=== PATIENT | female | born 1985 | race African-American/Black ===

== ENCOUNTER 2016-02-28 18:11 | Emergency (ER) | payer SELFPAY ==
[~2016-02-28] VITALS: Ht 165.1 cm; Wt 73.9 kg
[~2016-02-28 18:11] MED LIST: CIPRO500 MG PO; CYCLOBENZAPRINE10 MG ORAL; DONNATAL TAB1 TAB PO; ERYTHROMYCIN3.5 GM RIGHT EYE; IBUPROFEN600 MG ORAL; MACROBID100 MG ORAL; NAPROSYN500 M1 ORAL; NKM; NORCO 5-325 TA1 EACH ORAL; ONDANSETRON ODT8 MG PO; PHENERGAN25 M1 PO; PRENATAL FORMU1 EAC2 ORAL; PRENATAL MULTI1 EAC2 PO; TRAMADOL HCL50 MG ORAL; VICODIN 5-5001 EACH PO; ZOFRAN ODT4 MG ORAL; ZOFRAN4 MG ORAL
[2016-02-28 18:50] VITALS: BP 122/85
[2016-02-28] MEDS ORDERED: Lidocaine 2% Visc 15ml soln ONE (20:23)
[2016-02-28] MEDS ORDERED: Dexamethasone 4mg/ml vial ONE (20:24)
[2016-02-28] MEDS ORDERED: Lidocaine 2% Visc 15ml soln ORAL ONE (20:30)
[2016-02-28] MEDS ORDERED: Dexamethasone 4mg/ml vial IM ONE (20:30)
--- NOTE | 2016-02-28 20:32 | Emergency Room Report ---
History of Present Illness General Chief Complaint: Sore Throat Source: Patient Present Illness HPI 30 YO female Pt. presents to the ED c/o : sore throat, tonsillar swelling, and 10/10 pain tearing sensation with swallowing in addition to fevers. Patient denies cough patient states she had mild discomfort 2 days prior to wakening with severe swelling and pain this a.m.. Patient states she's been taking Tylenol and Motrin for pain and fever control. She is worried that she may have strep throat. She denies neck pain or stiffness. Patient reports chills. Denies CP, Palpitations, LOC, AMS, dizziness, Changes in Vision, Sensation, paresthesias, or a sudden severe headache. She denies ill contacts or recent travel. Allergies: Coded Allergies: No Known Allergies (Unverified , 03/08/12) Patient History Past Medical History: see triage record Past Surgical History: none Pertinent Family History: none Last Menstrual Period: 02/11/16 Now: No Immunizations: UTD Reviewed Nursing Documentation: PMH: Agreed, PSxH: Agreed Nursing Documentation-PMH Past Medical History: No History, Except For Hx Cardiac Problems: Yes - anemia, spinal injury Review of Systems All Other Systems: negative except mentioned in HPI Physical Exam Vital Signs Date Time Temp Pulse Resp B/P Pulse Ox O2 Delivery O2 Flow Rate FiO2 02/28/16 18:43 99.1 111 16 122/85 99 Room Air Sp02 EP Interpretation: reviewed, abnormal - mildly tachycardic at 111 General Appearance: no apparent distress, alert, GCS 15, non-toxic Head: normocephalic, atraumatic Eyes: bilateral eye PERRL, bilateral eye normal inspection ENT: hearing grossly normal, normal pharynx, no angioedema, normal voice, TMs + canals normal, tonsillar swelling, pharyngeal erythema, tonsillar exudate Neck: full range of motion, supple/symm/no masses Respiratory: chest non-tender, lungs clear, normal breath sounds, speaking full sentences Cardiovascular #1: regular rate, rhythm, no edema Rectal: deferred Musculoskeletal: back normal, gait/station normal, normal range of motion, non- tender, no calf tenderness Neurologic: alert, oriented x3, responsive, motor strength/tone normal, sensory intact, speech normal Psychiatric: judgement/insight normal, memory normal, mood/affect normal, no suicidal/homicidal ideation Skin: normal color, no rash, warm/dry, well hydrated Lymphatic: no adenopathy Medical Decision Making PA Attestation Dr. Alberto is my supervising Physician whom patient management has been discussed with. Diagnostic Impression: Primary Impression: Pharyngitis, acute Qualified Codes: J02.9 - Acute pharyngitis, unspecified ER Course Pt. presents to the ED c/o : sore throat, tonsillar swelling, and 10/10 pain tearing sensation with swallowing in addition to fevers. Ddx considered but are not limited to: pharyngitis, strep, MANAGER TRAVEL, ludwigs angina, URI Vital signs: are WNL, pt. is afebrile H&PE are most consistent with: pharyngitis presumed strep ORDERS: None required at this time as the diagnosis is clinical ED INTERVENTIONS: -8mg Decadron -20mL 2% Viscous lidocaine PO for pain DISCHARGE: At this time pt. is stable for d/c to home. Will provide printed patient care instructions, and any necessary prescriptions. Care plan and follow up instructions have been discussed with the patient prior to discharge. Last Vital Signs Date Time Temp Pulse Resp B/P Pulse Ox O2 Delivery O2 Flow Rate FiO2 02/28/16 18:50 99.1 84 16 122/85 99 Room Air Disposition: HOME, SELF-CARE Condition: Stable Scripts Lidocaine HCl (Lidocaine HCl Viscous) 100 Ml Solution 20 ML PO TID for 5 Days, ML Prov: Gisel Brito 02/28/16 Acetaminophen* (TYLENOL EXTRA STRENGTH*) 500 Mg Tablet 500 MG ORAL Q6H, #30 TAB 0 Refills Prov: Gisel Brito 02/28/16 Amoxicillin* (AMOXIL*) 500 Mg Capsule 500 MG ORAL BID for 10 Days, #20 CAP Prov: Gisel Brito 02/28/16 Referrals: NOT CHOSEN IPA/MD,REFERRING (PCP) Patient Instructions: Pharyngitis, [id number] Additional Instructions: Take medications as directed. Follow up with PCP in 3-5 days Return sooner to ED if new symptoms occur, or current symptoms become worse. Gisel Brito Feb 28, 2016 20:32
[2016-02-28] MEDS ORDERED: AMOXICILLIN500 MG ORAL (20:34)
[2016-02-28] MEDS ORDERED: TYLENOL EXTRA500 MG ORAL (20:35)
[2016-02-28] MEDS ORDERED: LIDOCAINE VISCO20 ML PO (20:35)
[2016-02-28 20:44] VITALS: BP 122/85
== END 2016-02-28 20:44 | disposition home or self-care (01) ==
LOC: EMR 19:04
DX: J02.9 Acute pharyngitis, unspecified (principal)
CPT/HCPCS: 96372; 99283; J1100

== ENCOUNTER 2016-03-01 13:06 | Emergency (ER) | payer SELFPAY ==
[~2016-03-01] VITALS: Ht 165.1 cm; Wt 72.1 kg
[~2016-03-01 13:06] MED LIST changes: +AMOXICILLIN500 MG ORAL; +LIDOCAINE VISCO20 ML PO; +TYLENOL EXTRA500 MG ORAL
[2016-03-01 13:40] VITALS: BP 101/70
--- NOTE | 2016-03-01 14:14 | Emergency Room Report ---
History of Present Illness General Chief Complaint: Sore Throat Source: Patient Present Illness HPI 30 YO female Pt. presents to the ED c/o : sore throat with tonsillar swelling x 5 days, with New onset severe tongue sensitivity described as razor blades x 2 days Pt has been taking oral abx. which was rx'd to her 3 days ago for her throat and previous fevers. Pt. denies fevers at this time. pt. states mouth sensitivity is 10/10 in severity. Denies neck pain or stiffness denies swollen or tender lymph nodes. Denies changes in voice or hoarseness. Denies rash, CP, Palpitations, LOC, AMS, dizziness, Changes in Vision, Sensation, paresthesias, or a sudden severe headache. Allergies: Uncoded Allergies: FLU VACCINE (Allergy, Unknown, 03/01/16) Patient History Past Medical History: see triage record Past Surgical History: none Pertinent Family History: none Last Menstrual Period: unknown Now: No Reviewed Nursing Documentation: PMH: Agreed, PSxH: Agreed Nursing Documentation-PMH Past Medical History: No History, Except For Hx Cardiac Problems: Yes - anemia, spinal injury Review of Systems All Other Systems: negative except mentioned in HPI Physical Exam Vital Signs Date Time Temp Pulse Resp B/P Pulse Ox O2 Delivery O2 Flow Rate FiO2 03/01/16 13:40 98.8 87 14 101/70 97 Room Air Sp02 EP Interpretation: reviewed, normal General Appearance: no apparent distress, alert, GCS 15, non-toxic Head: normocephalic, atraumatic Eyes: bilateral eye PERRL, bilateral eye normal inspection ENT: hearing grossly normal, normal pharynx, no angioedema, normal voice, TMs + canals normal, uvula midline, moist mucus membranes, pharyngeal erythema, other - no oral lesions noted, the tongue has swollen/inflammed pappilae, no exudates or evidence of white plaques. no significant lingual erythema or swelling noted. Neck: full range of motion, no meningismus, no bony tend, supple/symm/no masses Respiratory: chest non-tender, lungs clear, normal breath sounds, no rhonchi, no respiratory distress, no retraction, no accessory muscle use, no wheezing, speaking full sentences Cardiovascular #1: regular rate, rhythm, no edema Gastrointestinal: non tender, soft, no guarding, no rebound Rectal: deferred Musculoskeletal: back normal, gait/station normal, normal range of motion, non- tender, no calf tenderness Neurologic: alert, oriented x3, responsive, motor strength/tone normal, sensory intact, speech normal Psychiatric: judgement/insight normal, memory normal, mood/affect normal, no suicidal/homicidal ideation Skin: normal color, no rash, warm/dry, well hydrated Lymphatic: no adenopathy Medical Decision Making PA Attestation Dr. Angulo is my supervising Physician whom patient management has been discussed with. Diagnostic Impression: Primary Impression: Pharyngitis, acute Qualified Codes: J02.9 - Acute pharyngitis, unspecified Additional Impression: Stomatitis, viral ER Course Pt. presents to the ED c/o : sore throat, tonsillar swelling, x 3 days, with New onset severe tongue sensitivity described as razor blades. -Pt reports tonsils remain swollen at this time. Ddx considered but are not limited to: pharyngitis, strep, MAMMOGRAPHY TECHNOLOGIST, Shabbir's angina , URI , oral Stomatitis, thrush, aphthous ulcers. Vital signs: are WNL, pt. is afebrile H&PE are most consistent with: pharyngitis continued, pt. currently on abx. with stomatitis most likely due to viral illness. ORDERS: None required at this time as the diagnosis is clinical ED INTERVENTIONS: -60mg IM Toradol -d/w pt. to follow up with ENT specialist if symptoms persist. d/w pt. to finish medications, and to avoid acidic foods/drinks. DISCHARGE: At this time pt. is stable for d/c to home. Will provide printed patient care instructions, and any necessary prescriptions. Care plan and follow up instructions have been discussed with the patient prior to discharge. Last Vital Signs Date Time Temp Pulse Resp B/P Pulse Ox O2 Delivery O2 Flow Rate FiO2 03/01/16 13:40 98.8 87 14 101/70 97 03/01/16 13:40 Room Air Disposition: HOME, SELF-CARE Condition: Stable Scripts Acetaminophen* (TYLENOL EXTRA STRENGTH*) 500 Mg Tablet 500 MG ORAL Q6H, #30 TAB 0 Refills Prov: Gisel Brito P.ADorothea 03/01/16 Lidocaine HCl (Lidocaine HCl Viscous) 100 Ml Solution 20 ML PO Q4HR, #240 ML Prov: Gisel Brito Rosemary 03/01/16 Prednisone* (PREDNISONE*) 20 Mg Tablet 40 MG ORAL DAILY for 5 Days, #10 TAB Prov: Gisel Brito 03/01/16 Referrals: NOT CHOSEN IPA/,REFERRING (PCP) Patient Instructions: Pharyngitis, Cpml-sw-Homy, Stomatitis Additional Instructions: Take medications as directed. Follow up with PCP in 3-5 days Return sooner to ED if new symptoms occur, or current symptoms become worse. Gisel Brito Mar 01, 2016 14:14
[2016-03-01] MEDS ORDERED: Ketorolac 60mg Inj IM ONE (14:15)
[2016-03-01] MEDS ORDERED: TYLENOL EXTRA500 MG ORAL (14:22)
[2016-03-01] MEDS ORDERED: PREDNISONE20 MG ORAL (14:22)
[2016-03-01] MEDS ORDERED: LIDOCAINE VISCO20 ML PO (14:22)
[2016-03-01 14:36] VITALS: BP 110/78
== END 2016-03-01 14:38 | disposition home or self-care (01) ==
LOC: EMR 13:55
DX: J02.9 Acute pharyngitis, unspecified (principal); K12.1 Other forms of stomatitis; B34.9 Viral infection, unspecified; Z88.7 Allergy status to serum and vaccine
CPT/HCPCS: 96372; 99283

== ENCOUNTER 2016-09-25 21:04 | Emergency (ER) | payer SELFPAY ==
[~2016-09-25] VITALS: Ht 167.6 cm; Wt 72.6 kg
[~2016-09-25 21:04] MED LIST changes: +PREDNISONE20 MG ORAL
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
[2016-09-25] MEDS ORDERED: Metoclopramide 10mg/2ml Inj IVP ONE (21:45)
[2016-09-25] MEDS ORDERED: DiphenhydrAMINE 50mg/ml Inj IVP ONE (21:45)
[2016-09-25] MEDS ORDERED: Ketorolac 30mg Inj IV ONE (21:45)
[2016-09-25 22:01] LABS: APPEARANCE,URINE CLEAR; KETONES,URINE NEGATIVE (NEGATIVE); LEUKOCYTE ESTERASE ,URINE 1+ (NEGATIVE); NITRITE,URINE NEGATIVE (NEGATIVE); PH,URINE 7 (4.5-8.0); PROTEIN,URINE NEGATIVE (NEGATIVE); UROBILINOGEN,URINE 1 MG/DL (0.0-1.0)
[2016-09-25 22:10] LABS: BACTERIA,URINE FEW /HPF; SQUAMOUS EPITHELIAL CELL,UR FEW /LPF (NONE/OCC); WBC,URINE 0-2 /HPF (0 - 2)
[2016-09-25 22:48] VITALS: BP 124/78
[2016-09-26] MEDS ORDERED: ZOFRAN ODT4 MG ORAL (00:09)
[2016-09-26] MEDS ORDERED: NORCO 5-325 TA1 EACH ORAL (00:09)
[2016-09-26] MEDS ORDERED: IBUPROFEN600 MG ORAL (00:09)
[2016-09-26] MEDS ORDERED: GABAPENTIN600 MG ORAL (00:09)
[2016-09-26 00:37] VITALS: BP 121/58
== END 2016-09-26 00:25 | disposition home or self-care (01) ==
LOC: EMR 21:35
DX: G43.909 Migraine, unspecified, not intractable, without status migrainosus (principal); Z88.7 Allergy status to serum and vaccine
CPT/HCPCS: 81003; 81025; 96374; 96375; 99284; J1200; J1885; J2765